=== PATIENT | female | born 1950 | race Caucasian/White ===

== ENCOUNTER 2021-09-10 03:28 | Inpatient (IN) | payer MEDICARE, BC ==
[~2021-09-10] VITALS: Ht 165.1 cm; Wt 68.0 kg
[2021-09-10 03:36] VITALS: BP 131/68
[2021-09-10] MEDS ORDERED: LOVASTATIN 20 M20 MG PO (03:39)
[2021-09-10] MEDS ORDERED: NORVASC10 MG PO (03:39)
[2021-09-10] MEDS ORDERED: CARVEDILOL12.5 MG PO (03:39)
[2021-09-10] MEDS ORDERED: LOSARTAN-HCTZ1 EAC3 PO (03:39)
[2021-09-10] MEDS ORDERED: JANTOVEN5 MG PO (03:40)
[2021-09-10] MEDS ORDERED: SENNA8.6 MG PO (03:41)
[2021-09-10] MEDS ORDERED: VITAMIN C500 M2 PO (03:41)
[2021-09-10 04:19] LABS: ABSOLUTE LYMPHOCYTES 0.4 thou/uL (0.8-5.3); ABSOLUTE MONOCYTES 0.5 thou/uL (0.0-1.2); ABSOLUTE NEUTROPHILS 4.8 thou/uL (1.6-8.1); BASOPHILS 0.5 %; EOSINOPHILS 0.3 %; HEMATOCRIT 34.3 % (37.0-47.0); HEMOGLOBIN 11.3 gm/dL (12.0-15.0); LYMPHOCYTES 6.3 %; MCH 27.6 pg (26.0-34.0); MCV 83.7 fL (80.0-100.0); MONOCYTES 9.2 %; MPV 7.7 fl. (7.2-11.1); NUCLEATED RBCS 0 /100WBC; PLATELET COUNT* 225 thou/uL (150-400); POLYS 83.7 %; RDW-CV 14.2 % (10.5-14.5); WBC 5.7 thou/uL (4.0-11.0)
[2021-09-10 04:25] LABS: CALCIUM 8.3 mg/dL (8.5-10.1); CREATININE 0.7 mg/dL (0.6-1.3); POTASSIUM 3.8 mmol/L (3.5-5.1)
[2021-09-10 04:26] LABS: BE 1.4 mmol/L (-2 to +3); PCO2 29.6 mmHg (35.0-45.0); PO2 74.6 mmHg (75.0-100.0); pH 7.516 (7.340-7.450)
[2021-09-10 04:29] LABS: ALBUMIN 2.5 g/dL (3.4-5.0); MAGNESIUM 1.9 mg/dL (1.8-2.4); TOTAL BILIRUBIN 0.4 mg/dL (<0.1-1.0); TOTAL PROTEIN 6.6 g/dL (6.4-8.2)
[2021-09-10 04:52] LABS: APTT 88.5 Seconds (25.0-31.3); INR 15.7
[2021-09-10 05:27] LABS: URINE BILIRUBIN NEGATIVE (Negative); URINE BLOOD 1+ (Negative); URINE CLARITY CLEAR; URINE COLOR YELLOW; URINE GLUCOSE-RANDOM NEGATIVE (Negative); URINE KETONES 2+ (Negative); URINE PROTEIN NEGATIVE (Negative); URINE UROBILINOGEN 0.2 E.U./dl (0.2-1.0)
[2021-09-10 05:28] LABS: URINE LEUKOCYTES-REFLEX 3+ (Negative); URINE NITRITE-REFLEX POSITIVE (Negative)
[2021-09-10 06:24] LABS: SQUAMOUS 0-3 Few /LPF (0-3); URINE RBC 3-10 Few /HPF (0-2)
[2021-09-10 06:25] LABS: CASTS None Seen /LPF (None Seen); CRYSTALS None Seen /LPF (None Seen); MUCUS 0-3 Light strn/LPF (None Seen)
[2021-09-10 06:27] LABS: PROTIME > 90.0 Seconds (9.20-11.50)
[2021-09-10 06:54] LABS: PROTIME > 90.0 Seconds (9.20-11.50)
[2021-09-10 06:55] LABS: INR 15.6
[2021-09-10 09:00] VITALS: BP 117/66
--- NOTE | 2021-09-10 10:37 | EKG ---
[place] [address] ELECTROCARDIOGRAM REPORT Name: NADINE ZURITA Room: [place] [address] ADM IN [facility]#: [id number] Admission: 09/10/21 Attend Phys: Richard Allan, Discharge: Date of : 52 Date of Service: 09/10/21 0346 Report #: [id number] THIS REPORT FOR: //name// [facility] ED Test Date: 2021-09-10 Test Time: 03:46:30 Pat Name: NADINE ZURITA Department: Room: [facility] Gender: F [employer] [employer]er: : 1950 Requested By: Ally Gabriel Order Number: [id number] MD: Napoleon Grayson Measurements Intervals [place] Rate: 78 P: 44 ID: 211 QRS: 64 QRSD: 144 T: 5 QT: 413 QTc: 471 Interpretive Statements Sinus rhythm Right bundle branch block No previous ECG available for comparison Electronically Signed On 09-10-2021 10:37:22 [address] REPAIRER by Napoleon Grayson [email or web address] <ELECTRONICALLY SIGNED> By: Napoleon Grayson MD, FACC 09/10/21 1037 0346 [id number] Napoleon Grayson MD, FACC /EPI
[2021-09-10 13:06] VITALS: BP 112/58
--- NOTE | 2021-09-10 13:43 | NUR ---
CM COMPLETED ASSESSMENT WITH PT'S D/T PT BEING ON COVID ISOLATION. PT LIVES IN HOME W/SPOUSE. PT USES NO DMES. PT IS ACTIVE, DRIVES A VEHCILE AND IS INDEPENDENT WITH ADLS. PT SPOUSE INDICATED HE HAD COVID, BUT MAY BE GOING TO GET "CHECKED OUT" D/T HAVING "TIGHTNESS IN CHEST." CM TO CONT TO FOLLOW.
[2021-09-10 17:07] VITALS: BP 109/56
[2021-09-10 20:02] VITALS: BP 104/62
[2021-09-11 04:00] VITALS: BP 118/61
[2021-09-11 08:00] VITALS: BP 102/57
[2021-09-11 09:21] LABS: APTT 74.1 Seconds (25.0-31.3); PROTIME 76.2 Seconds (9.20-11.50)
--- NOTE | 2021-09-11 09:31 | NUR ---
dr metcalf notified of INR at this time via youcall.
[2021-09-11 12:31] VITALS: BP 110/51
[2021-09-11 16:08] VITALS: BP 102/50
--- NOTE | 2021-09-11 18:05 | NUR ---
SANTO, PTS DAUGHTER UPDATED. ALL QUESTIONS ANSWERED.
--- NOTE | 2021-09-11 18:18 | NUR ---
NO ACUTE CHANGES THIS SHIFT. PT GOT UP TO CHAIR, SAT UP FOR MEALS, ENCOURAGE INCENTIVE SPIROMETER 10X/HR AWAKE. REMAINS ON AIRVO 40L/70-75% FIO2 THIS SHIFT. PLAN CONTINUE TO WEAN O2 ABLE.
[2021-09-11 20:00] VITALS: BP 107/55
[2021-09-12 00:37] VITALS: BP 118/73
[2021-09-12 04:03] LABS: HEMATOCRIT 32.3 % (37.0-47.0); HEMOGLOBIN 10.5 gm/dL (12.0-15.0); MCH 27.7 pg (26.0-34.0); MCHC 32.6 g/dL (28.0-37.0); MCV 85.2 fL (80.0-100.0); MPV 7.5 fl. (7.2-11.1); RBC 3.79 mil/uL (4.20-5.00); RDW-CV 14.3 % (10.5-14.5); WBC 8.5 thou/uL (4.0-11.0)
[2021-09-12 04:22] LABS: ALBUMIN 2.1 g/dL (3.4-5.0); CALCIUM 8.6 mg/dL (8.5-10.1); CREATININE 0.7 mg/dL (0.6-1.3); MAGNESIUM 2.2 mg/dL (1.8-2.4); POTASSIUM 3.9 mmol/L (3.5-5.1); TOTAL BILIRUBIN 0.3 mg/dL (<0.1-1.0)
[2021-09-12 04:45] VITALS: BP 124/70
--- NOTE | 2021-09-12 04:58 | NUR ---
PT HAD BM OVERNIGHT AND SHE SAYS IT IS MUCH DARKER THAN USUAL (CHARTED) CHEST XRAY DONE THIS MORNING. 40L HHFC. SHE IS UP TO BSC STANDBY ASSIST. USES CALL LIGHT WHEN NEEDING HELP. WILL CONTINUE TO MONITOR.
[2021-09-12 08:03] VITALS: BP 103/61
[2021-09-12 11:09] LABS: PROTIME 28.1 Seconds (9.20-11.50)
[2021-09-12 11:12] LABS: INR 2.8
--- NOTE | 2021-09-12 11:27 | NUR ---
pts INR down to 2.8. Pharmacy stated they need order from Dr Cavanaugh to dariel sweet. Dr Cavanaugh notified.
[2021-09-12 11:30] VITALS: BP 101/54
--- NOTE | 2021-09-12 11:33 | NUR ---
spoke with pts daughter, stated pts first positive result was sep 01. Isolation over Sep 21.
[2021-09-12 16:00] VITALS: BP 103/54
--- NOTE | 2021-09-12 18:18 | NUR ---
PT TITRATED FROM 40L/75% THIS SHIFT TO 40L/65% ON AIRVO. NO ACUTE CHANGES. PLAN CONTINUE TO WEAN O2 ABLE. PTS DAUGHTER UPDATED X2 THIS SHIFT.
[2021-09-12 18:29] LABS: URINE BILIRUBIN NEGATIVE (Negative); URINE BLOOD NEGATIVE (Negative); URINE CLARITY CLEAR; URINE COLOR YELLOW; URINE GLUCOSE-RANDOM NEGATIVE (Negative); URINE KETONES NEGATIVE (Negative); URINE LEUKOCYTES NEGATIVE (Negative); URINE NITRITE NEGATIVE (Negative); URINE PROTEIN NEGATIVE (Negative); URINE SPECIFIC GRAVITY <= 1.005 (1.005-1.030); URINE UROBILINOGEN 0.2 E.U./dl (0.2-1.0)
[2021-09-12 20:05] VITALS: BP 118/59
[2021-09-13 00:26] VITALS: BP 125/60
[2021-09-13 04:29] LABS: INR 2.1
[2021-09-13 04:48] VITALS: BP 129/56
[2021-09-13 09:00] VITALS: BP 129/54
[2021-09-13 12:00] VITALS: BP 118/55
[2021-09-13 16:00] VITALS: BP 121/53
[2021-09-13 19:55] VITALS: BP 127/61
[2021-09-14] VITALS: BP 121/73
[2021-09-14 04:00] VITALS: BP 111/50
[2021-09-14 04:20] LABS: HEMOGLOBIN 10.6 gm/dL (12.0-15.0); MCH 27.9 pg (26.0-34.0); MCHC 33.1 g/dL (28.0-37.0); MCV 84.2 fL (80.0-100.0); MPV 7.3 fl. (7.2-11.1); RBC 3.81 mil/uL (4.20-5.00); RDW-CV 14.4 % (10.5-14.5); WBC 6.8 thou/uL (4.0-11.0)
[2021-09-14 04:24] LABS: CALCIUM 8.3 mg/dL (8.5-10.1); CREATININE 0.7 mg/dL (0.6-1.3); POTASSIUM 3.8 mmol/L (3.5-5.1)
[2021-09-14 09:00] VITALS: BP 118/59
[2021-09-14 12:14] VITALS: BP 120/65
[2021-09-14] MEDS ORDERED: VITAMIN D325 MC2 PO (12:43)
[2021-09-14] MEDS ORDERED: DEXAMETHASONE1 MG PO (12:43)
[2021-09-14] MEDS ORDERED: COMBIVENT RESPIM4 GM INH (12:43)
[2021-09-14] MEDS ORDERED: CEFDINIR300 MG PO (12:43)
[2021-09-14 16:40] VITALS: BP 120/65
== END 2021-09-14 16:57 | disposition home health service (06) | DRG 177 ==
LOC: M.ERS 03:28 → M.TBA-ER 05:13 → M.ORTHSURG 20:23
PROVIDERS: Internal Medicine; Personal Emergency Response Attendant; ADMIT Internal Medicine; ATTEND Internal Medicine
PROC: 5A0935A Assistance with Respiratory Ventilation, Less than 24 Consecutive Hours, High Flow/Velocity Cannula (ICD-10-PCS; principal; 2021-09-10)
PROC: XW033E5 Introduction of Remdesivir Anti-infective into Peripheral Vein, Percutaneous Approach, New Technology Group 5 (ICD-10-PCS; principal; 2021-09-10)
PROC: 5A0945A Assistance with Respiratory Ventilation, 24-96 Consecutive Hours, High Flow/Velocity Cannula (ICD-10-PCS; 2021-09-11)
PROC: 5A0935A Assistance with Respiratory Ventilation, Less than 24 Consecutive Hours, High Flow/Velocity Cannula (ICD-10-PCS; 2021-09-13)
DX: U07.1 COVID-19 (principal); J96.01 Acute respiratory failure with hypoxia; J12.82 Pneumonia due to coronavirus disease 2019; E87.3 Alkalosis; N30.00 Acute cystitis without hematuria; B37.0 Candidal stomatitis; D68.9 Coagulation defect, unspecified; K59.00 Constipation, unspecified; H04.129 Dry eye syndrome of unspecified lacrimal gland; E88.09 Other disorders of plasma-protein metabolism, not elsewhere classified; I10 Essential (primary) hypertension; Z79.01 Long term (current) use of anticoagulants; Z95.2 Presence of prosthetic heart valve; Z79.899 Other long term (current) drug therapy